=== PATIENT | female | born 1955 | race Caucasian/White ===

== ENCOUNTER 2016-05-12 20:16 | Emergency (ER) | payer OTHER ==
[~2016-05-12] VITALS: Ht 165.1 cm; Wt 82.1 kg
[2016-05-12 22:40] VITALS: BP 133/82
== END 2016-05-12 22:41 | disposition home or self-care (01) ==
LOC: EME 20:16
DX: S90.32XA Contusion of left foot, initial encounter (principal); W20.8XXA Other cause of strike by thrown, projected or falling object, initial encounter
CPT/HCPCS: 73630; 99281; 99283

== ENCOUNTER 2017-01-28 13:59 | Emergency (ER) | payer OTHER ==
[~2017-01-28] VITALS: Ht 162.6 cm; Wt 81.8 kg
[2017-01-28] MEDS ORDERED: PERCOCET 5/31 TABLET PO (15:43)
[2017-01-28] MEDS ORDERED: FLEXERIL10 MG PO (15:43)
[2017-01-28 16:11] VITALS: BP 131/81
== END 2017-01-28 16:12 | disposition home or self-care (01) ==
LOC: EME 13:59
DX: S83.91XA Sprain of unspecified site of right knee, initial encounter (principal); S80.01XA Contusion of right knee, initial encounter; W11.XXXA Fall on and from ladder, initial encounter; Y92.009 Unspecified place in unspecified non-institutional (private) residence as the place of occurrence of the external cause; M17.11 Unilateral primary osteoarthritis, right knee
CPT/HCPCS: 73564; 99281; 99284